=== PATIENT | male | born 1965 | race Caucasian/White ===

== ENCOUNTER 2019-09-07 11:15 | Emergency (ER) | payer OTHER ==
[2019-09-07] MEDS ORDERED: DIPH,PERTUS(ACELL)TETVAC-LF 0.5 ML VIAL IM ONE (11:27)
[2019-09-07] MEDS ORDERED: HYDROcodone/APAP 7.5-325MG 1 EACH TAB PO ONE (11:28)
--- NOTE | 2019-09-07 13:10 | XR ---
EXAMINATION TYPE: XR forearm RT DATE OF EXAM: 09/07/2019 CLINICAL HISTORY: Laceration TECHNIQUE: Two views of the right forearm are obtained. COMPARISON: None. FINDINGS/IMPRESSION: No fracture. Probable negative ulnar variance. Fat density within the soft tissues along the ulnar as pect of the ulnohumeral joint may relate to artifact or possibly lipoma, correlate for palpable abnor mality. No radiopaque foreign body.
--- NOTE | 2019-09-07 13:38 | ED ---
Wound/Laceration HPI - General Chief Complaint: Wound/Laceration Stated Complaint: IHS-Arm Lac Time Seen by Provider: 09/07/19 11:27 Source: patient Mode of arrival: ambulatory Limitations: no limitations - History of Present Illness Initial Comments: 54yo male presenting today for chief complaint of right forearm laceration. Patient states she was carrying a saw when he slipped to call saw that was not on, his right mid forearm. He states he was bleeding states he is on blood thinners. Patient states he is unsure if it needed repair and presented here for evaluation unsure of last tetanus denies a limitations in range of motion of the hand or elbow. Patient denies any numbness tingling or loss sensation coolness or pallor of the extremity. Patient wrapped the extremity presented to the ER for evaluation remaining review of system negative denies any other areas of injury including fall or injury to head neck or back - Related Data Previous Rx's Medication Instructions Recorded Cephalexin [Keflex] 500 mg PO Q8HR 5 Days #15 cap 09/07/19 Allergies Allergy/AdvReac Type Severity Reaction Status Date / Time No Known Allergies Allergy Verified 09/07/19 12:00 Review of Systems ROS Statement: Those systems with pertinent positive or pertinent negative responses have been documented in the HPI. ROS Other: All systems not noted in ROS Statement are negative. Past Medical History Past Medical History: Myocardial Infarction (ID) History of Any Multi-Drug Resistant Organisms: None Reported Past Surgical History: Heart Catheterization With Stent Past Psychological History: No Psychological Hx Reported Smoking Status: Current every day smoker Past Alcohol Use History: None Reported Past Drug Use History: None Reported General Exam - General Exam Comments Initial Comments: General: The patient is awake and alert, in no distress, and does not appear acutely ill. Eye: Pupils are equal, round and reactive to light, extra-ocular movements are intact. No nystagmus. There is normal conjunctiva bilaterally. No signs of icterus. Cardiovascular: There is a regular rate and rhythm. No murmur, rub or gallop is appreciated. Respiratory: Lungs are clear to auscultation, respirations are non-labored, breath sounds are equal. No wheezes, stridor, rales, or rhonchi. Musculoskeletal: Normal ROM, at the wrist b/l and hands b/l. Strength 5/5. Sensation intact. Radial and ulnar pulses equal bilaterally 2+. Capillary refil < 3 seconds. Neurological: A&O x 3. CN II-XII intact, There are no obvious motor or sensory deficits. Coordination appears grossly intact. Speech is normal. Skin: Skin is warm and dry and no rashes. 7 cm skin tear on the medial portion of the right forearm longitudinal. No deep laceration. No evidence of obvious foreign body bleeding controlled Psychiatric: Cooperative, appropriate mood & affect, normal judgment. Limitations: no limitations Course Vital Signs 09/07/19 09/07/19 11:18 13:50 Temperature 98.4 F 98.3 F Pulse Rate 67 62 Respiratory 19 16 Rate Blood Pressure 131/75 136/87 O2 Sat by Pulse 99 98 Oximetry Medical Decision Making - Medical Decision Making 58 male presenting for right forearm laceration. Appears to be a skin tear. No deeper laceration that requires suture repair and she says revealed no foreign body no osseous injury. Tetanus updated. Extensor cleansed irrigated. Steri- Strips are placed over the skin tear sterile bandage. Care and bandage changes discussed at length the patient verbalizes understanding case discussed with her private Dr. Navarro was agreeable discharge at this time patient is placed in a prophylactic antibiotic to prevent cellulitis. Patient agreeable care for discharge Disposition Clinical Impression: Laceration of right forearm Disposition: HOME SELF-CARE Condition: Good Instructions (If sedation given, give patient instructions): Laceration (ED) Additional Instructions: Please use medication as discussed. Please follow-up with family doctor in the next 2 days. Wound care is discussed Please return to emergency room if the symptoms increase or worsen or for any other concerns. Prescriptions: Cephalexin [Keflex] 500 mg PO Q8HR 5 Days #15 cap Is patient prescribed a controlled substance at d/c from ED?: No Referrals: Geovanna Retana MD [Primary Care Provider] - 1-2 days Time of Disposition: 13:37
[2019-09-07 13:51] VITALS: BP 136/87; PULSE 62; RESP 16; TEMP 98.3
== END 2019-09-07 13:49 | disposition home or self-care (01) ==
LOC: EC 11:15
DX: S51.811A Laceration without foreign body of right forearm, initial encounter (principal); I25.2 Old myocardial infarction; F17.200 Nicotine dependence, unspecified, uncomplicated; Z95.5 Presence of coronary angioplasty implant and graft; Z23 Encounter for immunization; Z79.01 Long term (current) use of anticoagulants; W01.0XXA Fall on same level from slipping, tripping and stumbling without subsequent striking against object, initial encounter; Y93.89 Activity, other specified; Y92.69 Other specified industrial and construction area as the place of occurrence of the external cause; Y99.0 Civilian activity done for income or pay
CPT/HCPCS: 90471; 90715; 99283

== ENCOUNTER 2021-05-29 17:51 | Emergency (ER) | payer OTHER, BC ==
[2021-05-29] MEDS ORDERED: DIPH,PERTUS(ACELL)TETVAC-LF 0.5 ML VIAL IM ONE (18:04)
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
[2021-05-29 18:26] LABS: Basophils % (A) 1 %; Eosinophils # (A) 0.2 k/uL (0-0.7); Eosinophils % (A) 3 %; HGB 17.2 gm/dL (13.0-17.5); Lymphocytes # (A) 1.4 k/uL (1.0-4.8); Lymphocytes % (A) 22 %; MCHC 34.5 g/dL (31.0-37.0); MCV 92.9 fL (80.0-100.0); Mean Platelet Volume 7.6; Monocytes # (A) 0.4 k/uL (0-1.0); Monocytes % (A) 6 %; Neutrophils # (A) 4.2 k/uL (1.3-7.7); Neutrophils % (A) 67 %; Platelet Count 202 k/uL (150-450); RBC 5.39 m/uL (4.30-5.90); WBC 6.2 k/uL (3.8-10.6)
[2021-05-29] MEDS ORDERED: HYDROmorphone 1 MG/ML 1 ML SYRINGE IVP STA (18:29)
[2021-05-29 18:40] LABS: INR 0.9 (<1.2); Partial Thromboplastin Time 21.1 sec (22.0-30.0); Prothrombin Time 10.1 sec (9.0-12.0)
[2021-05-29 18:41] LABS: ALT 13 U/L (4-49); AST 25 U/L (17-59); African American GFR (CKD) >90 (>60 ml/min/1.73 sqM); Albumin 4.3 g/dL (3.5-5.0); Alcohol <10 mg/dL; Alkaline Phosphatase 111 U/L (38-126); Anion Gap 9 mmol/L; Blood Urea Nitrogen 17 mg/dL (9-20); Calcium 9.7 mg/dL (8.4-10.2); Carbon Dioxide 18 mmol/L (22-30); Chloride 109 mmol/L (98-107); Creatine Kinase 131 U/L (55-170); Glucose 98 mg/dL (74-99); Non-African American GFR(CKD) >90 (>60 ml/min/1.73 sqM); Sodium 136 mmol/L (137-145); Total Bilirubin 0.5 mg/dL (0.2-1.3); Total Protein 6.7 g/dL (6.3-8.2)
[2021-05-29 18:51] LABS: Creatine Kinase MB 1.6 ng/mL (0.0-2.4); Troponin I <0.012 ng/mL (0.000-0.034)
[2021-05-29 18:54] LABS: Potassium 4.4 mmol/L (3.5-5.1)
[2021-05-29 19:21] LABS: Appearance,Urine Clear (Clear); Bilirubin,Urine Negative (Negative); Blood,Urine Small (Negative); Color,Urine Light Yellow; Glucose,Urine (UA) Negative (Negative); Ketones,Urine Trace (Negative); Leukocyte Esterase,Urine Negative (Negative); Nitrite,Urine Negative (Negative); PH, Urine 5.5 (5.0-8.0); Protein,Urine Negative (Negative); RBC,Urine 4 /hpf (0-5); Urobilinogen,Urine <2.0 mg/dL (<2.0); WBC,Urine 1 /hpf (0-5)
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
[2021-05-29 19:31] LABS: Amphetamine Screen,Urine Not Detected (NotDetected); Barbiturate Screen,Urine Not Detected (NotDetected); Benzodiazepines Screen,Urine Not Detected (NotDetected); Cocaine Screen,Urine Not Detected (NotDetected); Methadone Screen, Urine Not Detected (NotDetected); Opiate Screen,Urine Detected (NotDetected); Oxycodone Screen, Urine Not Detected (NotDetected); Phencyclidine Screen,Urine Not Detected (NotDetected); Tricyclic Antidepressant,Urine Not Detected (NotDetected); Urn Cannabinoid Scrn Not Detected (NotDetected)
[2021-05-29] MEDS ORDERED: ACET/COD 300 MG/30 MG STARTER PACK 6 TAB BTL PO STA (20:02)
[2021-05-29 20:10] VITALS: BP 144/84; PULSE 78; RESP 20; TEMP 98
== END 2021-05-29 20:10 | disposition home or self-care (01) ==
LOC: EC 17:51
DX: S22.20XA Unspecified fracture of sternum, initial encounter for closed fracture (principal); Z23 Encounter for immunization; I25.2 Old myocardial infarction; F17.200 Nicotine dependence, unspecified, uncomplicated; V43.52XA Car driver injured in collision with other type car in traffic accident, initial encounter; Y93.89 Activity, other specified
CPT/HCPCS: 99285; 96374; 90471; 36415; 93005; 86900; 86901; 80053; 82550; 82553; 84484; 85025; 85610; 85730; 86850; 81001; 80306; 80320; 71260; 74177; 90715; J1170; Q9967